=== PATIENT | female | born 1990 | race Caucasian/White ===

== ENCOUNTER 2018-04-09 16:11 | Outpatient (REF) | payer BC, SELFPAY ==
--- NOTE | 2018-04-09 16:00 | PAPFT_PTH ---
PATIENT: Deyanira Villa LOC: [facility] U#:[id number] AGE/SX: 27/F ROOM: RE04/09/[address]: KETTY Weinberg : 1990 BED: DIS: 04/09/2018 SPEC #: [id number] RECD: 04/09/18 17:52 STATUS: KAMRAN REBernabe #: [id number] MERLIN: 04/09/18 16:[address]: Milagros Mcfarlane DEPT: [facility] Cytology RECD BY: Monica Hawthorne ENTERED: 04/09/18 17:52 SP TYPE: PAPFT OTHR DR: Norma Hernandez Tissues: 1 - CX/ENDOCX FOR PAP SMEARS Procedures: PAP THIN PREP/[facility] Screening Comments: [id number]
== END 2018-04-09 16:31 ==
LOC: LBN 16:11
PROVIDERS: PCP Nurse Practitioner; Visit Provider Nurse Practitioner Family
DX: Z12.4 Encounter for screening for malignant neoplasm of cervix (principal)
CPT/HCPCS: 88142

== ENCOUNTER 2018-06-11 17:25 | Outpatient (REF) | payer BC, SELFPAY ==
[2018-06-11 20:15] LABS: Bacteria Negative HPF (Negative); Bilirubin Color Interference (Negative); Blood Color Interference (Negative); Casts Negative LPF (Negative); Clarity Clear; Crystals Negative HPF (Negative); Epithelial Cells Rare HPF (Negative); Glucose Color Interference mg/dL (Negative); Ketones Color Interference mg/dL (Negative); Leukocyte Esterase Color Interference (Negative); Mucus Negative (Negative); Nitrite Color Interference (Negative); RBC 0-2 (0-2); Urobilinogen Color Interference EU/dL (Up TO 0.2)
[2018-06-24 16:11] LABS: C & S Indicated? No
== END 2018-06-11 17:45 ==
LOC: NCHCN 17:25
PROVIDERS: PCP Nurse Practitioner; Visit Provider Nurse Practitioner Family
DX: N39.0 Urinary tract infection, site not specified (principal)
CPT/HCPCS: 81003; 81015; 87086

== ENCOUNTER 2019-02-07 07:53 | Emergency (ER) | payer BC, SELFPAY ==
[2019-02-07 08:01] VITALS: BP 106/64; PULSE 65; RESP 14; TEMP 36.4; O2SAT 99
[2019-02-07 08:20] LABS: Bilirubin Negative (Negative); Blood Moderate (Negative); Clarity Sl Cloudy (Clear); Glucose Negative (Negative); Ketones Negative (Negative); Leukocyte Esterase Small (Negative); Nitrite Positive (Negative); Specific Gravity 1.015 (1.005-1.025); Urobilinogen 0.2 EU/dL (Up TO 0.2)
[2019-02-07 08:35] LABS: Epithelial Cells Negative HPF (Negative); Other Cells Few Renal (Negative); RBC >50 (0-2); WBC 20-50 HPF (0-5)
[2019-02-07 08:36] LABS: Bacteria Few HPF (Negative); C & S Indicated? Yes; Casts Negative LPF (Negative); Crystals Negative HPF (Negative); Mucus Negative (Negative)
[2019-02-07] MEDS: Ciprofloxacin 500 MG TAB PO (09:15)
--- NOTE | 2019-02-07 09:24 | W.ED.GENAD ---
Discharge Plan Disposition Patient Disposition: HOME Condition: Stable Discharge Details Chief Complaint: Urinary Clinical Impression: Pyelonephritis Primary Care Provider: Norma Hernandez ED Provider: Svitlana Flynn Home Meds and New Rx's Prescriptions: New ciprofloxacin HCl [Cipro] 500 mg tablet 500 mg PO BID Qty: 13 RF: 0 ondansetron 4 mg tablet,disintegrating 4 mg PO TID PRN (Reason: nausea and vomiting) Qty: 9 RF: 0 No Action norgestimate-ethinyl estradiol [Tri-Sprintec (28)] 0.18/0.215/0.25 mg-35 mcg (28) tablet 1 tab PO DAILY Qty: 84 RF: 3 Discharge Instructions Instructions: Ciprofloxacin (By mouth), Ondansetron (By mouth), Urinary Tract Infection in Women (ED) Additional Instructions: Please return immediately to the emergency department if you develop any new or worsening symptoms, if your symptoms do not improve as expected, or if you become otherwise concerned. It is extremely important that you call as soon as possible to make an appointment to be seen in follow-up for this visit by your primary care doctor. Stand Alone Forms: Work Release Referrals: Norma Hernandez [Primary Care Provider] - Discharge Data Discharge Date/Time-TO BE ENTERED AT DEPARTURE: 02/07/19 09:39 Medical Decision Making Deyanira Mon is a 28-year-old woman with a history of irritable bowel syndrome and recurrent UTIs who presented to the emergency department with urinary frequency, dysuria, and left flank pain that began in the middle last night, no current pain. On exam patient is very well and nontoxic appearing. She appears comfortable. She has mild left-sided CVA tenderness and mild suprapubic tenderness on abdominal exam without rebound or guarding. Concern for pyelonephritis. Exam/history is not consistent with ureteral lithiasis, sepsis, PID, appendicitis/other acute emergent intra-abdominal process, acute aortic pathology. Patient has taken Cipro in the past with resolution of her symptoms. Plan for Cipro, Zofran. Patient reports that she would rather delay Zofran at this time secondary to constipating side effects as she is drinking fluids without issue. Will obtain screening EKG for congenital long QT given Cipro/Zofran. EKG okay. I had a lengthy discussion with the patient regarding return to emergency department precautions, importance of outpatient follow-up, and home care. Patient verbalized understanding of the plan was amenable. All questions were answered. Patient was discharged home with clear plan for outpatient follow-up. Medical Records Medical records reviewed: Yes I reviewed the patient's medical records. Lab Data Lab results reviewed: Yes I reviewed the patient's lab results. Labs: 02/07/19 08:13 Urine - Reflex from Ua Urine Culture - Pending Laboratory Tests Range/Units 02/07/19 08:13 Urine Color (Yellow) Yellow Urine Clarity (Clear) Sl cloudy Urine pH (5-8) 7.0 Ur Specific Orrum (1.005-1.025) 1.015 Urine Protein (Negative) mg/dL 30 H Urine Ketones (Negative) mg/dL Negative Urine Blood (Negative) Moderate H Urine Nitrite (Negative) Positive H Urine Bilirubin (Negative) Negative Urine Urobilinogen (Up TO 0.2) EU/dL 0.2 Ur Leukocyte Esterase (Negative) Small H Urine RBC (0-2) >50 H Urine WBC (0-5) HPF 20-50 Ur Epithelial Cells (Negative) HPF Negative Urine Crystals (Negative) HPF Negative Urine Bacteria (Negative) HPF Few Urine Casts (Negative) LPF Negative Urine Mucus (Negative) Negative Urine Other (Negative) Few renal Ur Culture Indicated? Yes Urine Glucose (Negative) mg/dL Negative ECG Data Attestation: I personally reviewed and interpreted this ECG (s) as follows: Interpretation: EKG shows normal sinus rhythm at 63, right axis, QTC 434, no acute ischemic changes HPI General Mode of arrival: ambulatory. Date/Time Provider Initiated Documentation: 02/07/19 08:09. Limitations to Documentation: no limitations. Information obtained by: patient, RN notes reviewed and old records reviewed. HPI Narrative: Deyanira Mon is a 28-year-old woman with a history of irritable bowel syndrome and recurrent UTI presenting to the emergency department with urinary frequency and flank pain. Patient reports that she was awoken from sleep last night at approximately midnight with urinary frequency, dysuria, and left-sided flank pain. Flank pain was mild. Patient reports her urinary frequency and dysuria are exactly typical of her usual recurrent urinary tract infections, however she does not always have flank pain. Patient reports that she took Azo with food at approximately 3 AM to try to relieve urinary frequency, however she vomited food and medication. Patient reports that she has been holding down liquids without issue since that time but has not tried to eat again. She reports mild nausea. Patient reports that her flank pain has resolved, and she has no current pain. No fevers, no shortness of breath, no cough, no diarrhea. Patient reports chronic mild constipation, no BM for 2 days which is usual for her. Related Data Home Medications Medication Instructions Recorded Confirmed norgestimate-ethinyl estradiol 1 tab PO DAILY #84 tab 04/09/18 02/07/19 ciprofloxacin HCl [Cipro] 500 mg PO BID #13 tab 02/07/19 ondansetron 4 mg PO TID PRN #9 tab 02/07/19 Previous Rx's Medication Instructions Recorded norgestimate-ethinyl estradiol 1 tab PO DAILY #84 tab 04/09/18 ciprofloxacin HCl [Cipro] 500 mg PO BID #13 tab 02/07/19 ondansetron 4 mg PO TID PRN #9 tab 02/07/19 Allergies Allergy/AdvReac Type Severity Reaction Status Date / Time No Known Allergies Allergy Unverified 04/09/18 15:32 General Stated Complaint: Urinary MICHA: 3 Review of Systems Review of Systems Narrative: Constitutional: denies fevers Eyes: denies eye pain ENT: denies facial pain, dental pain, sore throat Cardiovascular: denies chest pain Respiratory: denies SOB, cough GI: denies abdominal pain, vomiting, diarrhea : Reports dysuria, urinary frequency, left flank pain now resolved MSK: denies back pain, neck pain, arthralgias, myalgias Skin: denies rash Neuro: denies headaches, numbness, weakness [facility] Social History Smoking/Tobacco Use Status: Never Drug use: Never Do you feel safe in your relationship?: Yes Female Reproductive History Menstrual control method: pills Exam Narrative Exam Narrative: Constitutional: well and [id number], pleasant, conversing normally HENT: head atraumatic/normocephalic/normal inspection, mucous membranes moist Eyes: conjunctiva normal, sclera normal, pupils 3mm b/l Neck: no stridor, normal ROM, trachea midline Chest: normal inspection Resp: normal work of breathing, LCTAB Cardio: normal rate, normal rhythm, no murmur appreciated GI: abdomen soft, mild focal suprapubic tenderness, no other tenderness, no rebound, no guarding, non-distended, positive left-sided CVA tenderness, no right-sided CVA tenderness Skin: warm, dry, normal color, no rash Neuro: alert, not altered, grossly non-focal, normal tone Ext: no edema Psych: normal mood, normal affect, normal behavior Course Vital Signs Vital signs: Vital Signs Temperature 36.4 C L 02/07/19 08:01 Pulse 65 02/07/19 08:01 Respiratory Rate 14 02/07/19 08:01 Blood Pressure 106/64 02/07/19 08:01 Pulse Oximetry 99 02/07/19 08:01 Temperature 36.4 C L 02/07/19 08:01 Temperature Source Skin 02/07/19 08:01 Pulse 65 02/07/19 08:01 Respiratory Rate 14 02/07/19 08:01 Respiratory Effort 02/07/19 08:06 Blood Pressure 106/64 02/07/19 08:01 Blood Pressure Position Sitting 02/07/19 08:01 Pulse Oximetry 99 02/07/19 08:01 Oxygen Delivery Method Room Air 02/07/19 08:01 Oxygen Flow Rate 0 02/07/19 08:01 Pain Level 1 02/07/19 08:01 Lab/Test Results Lab/Test Results: 02/07/19 08:13 Urine - Reflex from Ua Urine Culture - Pending Laboratory Tests Range/Units 02/07/19 08:13 Urine Color (Yellow) Yellow Urine Clarity (Clear) Sl cloudy Urine pH (5-8) 7.0 Ur Specific Orrum (1.005-1.025) 1.015 Urine Protein (Negative) mg/dL 30 H Urine Ketones (Negative) mg/dL Negative Urine Blood (Negative) Moderate H Urine Nitrite (Negative) Positive H Urine Bilirubin (Negative) Negative Urine Urobilinogen (Up TO 0.2) EU/dL 0.2 Ur Leukocyte Esterase (Negative) Small H Urine RBC (0-2) >50 H Urine WBC (0-5) HPF 20-50 Ur Epithelial Cells (Negative) HPF Negative Urine Crystals (Negative) HPF Negative Urine Bacteria (Negative) HPF Few Urine Casts (Negative) LPF Negative Urine Mucus (Negative) Negative Urine Other (Negative) Few renal Ur Culture Indicated? Yes Urine Glucose (Negative) mg/dL Negative POC- Test(urine) Negative
== END 2019-02-07 09:39 | disposition home or self-care (01) ==
PROVIDERS: Emergency Provider Student in an Organized Health Care Education/Training Program; PCP Nurse Practitioner
DX: N10 Acute pyelonephritis (principal); Z87.440 Personal history of urinary (tract) infections
CPT/HCPCS: 99283; 81003; 81015; 87086

== ENCOUNTER 2021-07-18 15:58 | Outpatient (REF) | payer BC, SELFPAY ==
--- NOTE | 2021-07-18 15:45 | PAPFT_PTH ---
PATIENT: Deyanira Villa LOC: [facility] U#:[id number] AGE/SX: 30/F ROOM: RE07/18/[address]: KETTY Weinberg : 1990 BED: DIS: 07/18/2021 SPEC #: [id number] RECD: 07/18/21 18:13 STATUS: KAMRAN REBernabe #: [id number] MERLIN: 07/18/21 15:[address]: Milagros Mcfarlane DEPT: [facility] Cytology RECD BY: Monica Hawthorne ENTERED: 07/18/21 18:13 SP TYPE: PAPFT OTHR DR: Norma Hernandez Tissues: 1 - CX/ENDOCX FOR PAP SMEARS Procedures: PAP THIN PREP/[facility] Screening Comments: [id number]
== END 2021-07-18 15:59 | disposition home or self-care (01) ==
LOC: LBN 15:58
PROVIDERS: PCP Nurse Practitioner; Visit Provider Nurse Practitioner Family
DX: Z12.4 Encounter for screening for malignant neoplasm of cervix (principal)
CPT/HCPCS: 88142